=== PATIENT | male | born 1985 | race African-American/Black ===

== ENCOUNTER 2025-01-25 13:17 | Emergency (ER) | payer OTHER ==
[~2025-01-25] VITALS: Ht 177.8 cm; Wt 78.0 kg
[2025-01-25 13:22] VITALS: O2SAT 100
[2025-01-25] MEDS: PHENYTOIN SODIUM EXTENDED 100MG CAPSULE PO ONE (14:08)
[2025-01-25 14:16] VITALS: TEMP 36.9
[2025-01-25 15:13] VITALS: BP 126/82; PULSE 72; RESP 16; O2SAT 100
== END 2025-01-25 15:07 ==
LOC: ER 13:17
DX: S00.83XA Contusion of other part of head, initial encounter (principal); S09.90XA Unspecified injury of head, initial encounter; G40.909 Epilepsy, unspecified, not intractable, without status epilepticus; Z79.899 Other long term (current) drug therapy; Y08.89XA Assault by other specified means, initial encounter; Y93.89 Activity, other specified; Y92.89 Other specified places as the place of occurrence of the external cause; Y99.8 Other external cause status
CPT/HCPCS: 99284